=== PATIENT | female | born 1980 | race Caucasian/White ===

== ENCOUNTER 2018-06-10 04:40 | Emergency (ER) | payer OTHER ==
--- NOTE | 2018-06-10 04:58 | PDOC ---
Attending Attestation - Resident Resident Name: Chidi Chau - ED Attending Attestation I have performed the following: I have examined & evaluated the patient, The case was reviewed & discussed with the resident, I agree w/resident's findings & plan - HPI HPI: 06/10/18 05:28 Pt fell backward out of a chair at 10PM. Daughter put mom to bed, and got concerned later in the night when mom was not arousable from her slumber. Mom is A+Ox3 and in no distress. Mom is somnolent/drunk. - Physicial Exam PE: 06/10/18 05:29 Agree with resident exam - Medical Decision Making 06/10/18 05:29 Labs; serum preg; CT scan of head and c spine and Pelvis XR 06/10/18 06:17 Labs normal and pt is not . Alcohol level pending. Imaging studies pending. 06/10/18 06:29 Day attedning will follow CT scan results and disposition the patients.
[2018-06-10 04:59] VITALS: BP 118/85; PULSE 84; TEMP 98.3; BMI 27.8
--- NOTE | 2018-06-10 04:59 | PDOC ---
History of Present Illness - General Chief Complaint: Back Pain Stated Complaint: FALL Time Seen by Provider: 06/10/18 04:58 - History of Present Illness Initial Comments: 06/10/18 05:24 Ms. Nelson is a 37 yo female w/ pmh of DM and HLD who presents for evaluation of fall earlier tonight. Patient was reportedly drinking with friends around 10pm and fell backwards off of a bench. She took some aleve and went to bed. Daughter who is with her became concerned early this morning when she went to check on her as mother was difficult to awaken. Ms. Nelson is currently complaining of neck and low back pain. Past History - Past Medical History Allergies/Adverse Reactions: Allergies Allergy/AdvReac Type Severity Reaction Status Date / Time No Known Allergies Allergy Verified 06/10/18 04:44 COPD: No Diabetes: Yes HTN: Yes Hypercholesterolemia: Yes - Suicide/Smoking/Psychosocial Hx Smoking History: Never smoked Review of Systems - Review of Systems Comments:: 06/10/18 05:29 GENERAL/CONSTITUTIONAL: No fever or chills. No weakness. HEAD, EYES, EARS, NOSE AND THROAT: No change in vision. No ear pain or discharge. No sore throat. CARDIOVASCULAR: No chest pain or shortness of breath RESPIRATORY: No cough, wheezing, or hemoptysis. GASTROINTESTINAL: No nausea, vomiting, diarrhea or constipation. GENITOURINARY: No dysuria, frequency, or change in urination. MUSCULOSKELETAL: +Patient complaining of neck pain. SKIN: No rash NEUROLOGIC: No headache, vertigo, loss of consciousness, or change in strength/ sensation. ENDOCRINE: No increased thirst. No abnormal weight change HEMATOLOGIC/LYMPHATIC: No anemia, easy bleeding, or history of blood clots. ALLERGIC/IMMUNOLOGIC: No hives or skin allergy. *Physical Exam - Vital Signs Last Vital Signs Temp Pulse Resp BP Pulse Ox 98.3 F 84 18 118/85 99 06/10/18 04:43 06/10/18 04:43 06/10/18 04:43 06/10/18 04:43 06/10/18 04:43 - Physical Exam Comments: 06/10/18 05:32 GENERAL: +Patient intoxicated appearing. Awake, alert, and fully oriented, in no acute distress HEAD: No signs of trauma, normocephalic, atraumatic EYES: PERRLA, EOMI, sclera anicteric, conjunctiva clear ENT: Auricles normal inspection, hearing grossly normal, nares patent, oropharynx clear without exudates. Moist mucosa NECK: +TTP in C3-C4 area. LUNGS: No distress, speaks full sentences, clear to auscultation bilaterally HEART: Regular rate and rhythm, normal S1 and S2, no murmurs, rubs or gallops, peripheral pulses normal and equal bilaterally. ABDOMEN: Soft, nontender, normoactive bowel sounds. No guarding, no rebound. No masses EXTREMITIES: Normal inspection, Normal range of motion, no edema. No clubbing or cyanosis. NEUROLOGICAL: Cranial nerves II through XII grossly intact. Normal speech, normal gait, no focal sensorimotor deficits SKIN: Warm, Dry, normal turgor, no rashes or lesions noted. ED Treatment Course - LABORATORY CBC & Chemistry Diagram: 06/10/18 05:24 06/10/18 05:24 Medical Decision Making - Medical Decision Making 06/10/18 05:33 Ms. Nelson is a 37 yo female w/ [facility] as described who presents for evaluation of fall. Patient appears intoxicated - Head and C-spine CT's ordered for further evaluation as well as alcohol level to confirm history. 06/10/18 06:28 Alcohol elevated as below. Labs otherwise grossly wnl as below. Patient pending imaging for further evaluation. Laboratory Results - last 24 hr 06/10/18 06/10/18 06/10/18 05:23 05:24 05:24 WBC 7.8 RBC 4.50 Hgb 11.7 Hct 36.2 MCV 80.4 MCH 26.1 MCHC 32.4 RDW 14.6 Plt Count 367 MPV 7.5 Absolute Neuts (auto) 3.5 Neutrophils % 44.5 Lymphocytes % 44.3 H Monocytes % 9.1 Eosinophils % 1.4 Basophils % 0.7 Nucleated RBC % 0 Sodium 141 Potassium 3.6 Chloride 108 H Carbon Dioxide 24 Anion Gap 8 BUN 9 Creatinine 0.5 L Creat Clearance w eGFR 137.35 Random Glucose 94 Calcium 8.0 L Total Bilirubin 0.4 AST 12 L ALT 15 Alkaline Phosphatase 67 Total Protein 7.2 Albumin 3.4 Serum , Qual Negative Alcohol, Quantitative 06/10/18 05:24 WBC RBC Hgb Hct MCV MCH MCHC RDW Plt Count MPV Absolute Neuts (auto) Neutrophils % Lymphocytes % Monocytes % Eosinophils % Basophils % Nucleated RBC % Sodium Potassium Chloride Carbon Dioxide Anion Gap BUN Creatinine Creat Clearance w eGFR Random Glucose Calcium Total Bilirubin AST ALT Alkaline Phosphatase Total Protein Albumin Serum , Qual Alcohol, Quantitative 164.5 H *DC/Admit/Observation/Transfer Diagnosis at time of Disposition: Fall Qualifiers: Encounter type: initial encounter Qualified Code(s): W19.XXXA - Unspecified fall, initial encounter - Referrals Referrals: Isela Mckinley MD [Non Staff, Medical] - - Patient Instructions - Post Discharge Activity
[2018-06-10] MEDS ORDERED: ACETAMINOPHEN 500 MG TABLET (FP) PO ONE (05:11)
[2018-06-10] MEDS ORDERED: ACETAMINOPHEN 325 MG TABLET (FP) ONE (05:27)
[2018-06-10 05:39] LABS: BASO % 0.7 % (0-2.0); EOS % 1.4 % (0-4.5); HEMATOCRIT 36.2 % (32.4-45.2); HEMOGLOBIN 11.7 GM/dL (10.7-15.3); LYMPH % 44.3 % (8-40); MCH 26.1 pg (25.7-33.7); MCHC 32.4 g/dl (32.0-36.0); MEAN CELL VOLUME 80.4 fl (80-96); MEAN PLT VOLUME 7.5 fl (7.5-11.1); MONO % 9.1 % (3.8-10.2); NEUT % 44.5 % (42.8-82.8); PLATELET COUNT 367 K/MM3 (134-434); RDW 14.6 % (11.6-15.6); WHITE BLOOD COUNT 7.8 K/mm3 (4.0-10.0)
[2018-06-10 06:03] LABS: ALBUMIN 3.4 g/dl (3.4-5.0); ALK PHOS 67 U/L (45-117); ANION GAP 8 MMOL/L (8-16); BILIRUBIN,TOTAL 0.4 mg/dL (0.2-1); BLOOD UREA NITROGEN 9 mg/dL (7-18); CHLORIDE 108 mmol/L (98-107); CO2 24 mmol/L (21-32); CREATININE 0.5 mg/dL (0.55-1.3); GLUCOSE,RANDOM 94 mg/dL (74-106); POTASSIUM 3.6 mmol/L (3.5-5.1); SGOT/AST 12 U/L (15-37); SGPT/ALT 15 U/L (13-61); SODIUM 141 mmol/L (136-145); TOT PROT 7.2 g/dl (6.4-8.2)
--- NOTE | 2018-06-10 07:23 | PDOC ---
*Physical Exam - Vital Signs Last Vital Signs Temp Pulse Resp BP Pulse Ox 98.3 F 84 18 118/85 99 06/10/18 04:43 06/10/18 04:43 06/10/18 04:43 06/10/18 04:43 06/10/18 04:43 - Physical Exam Comments: 06/10/18 08:07 gen: sleeping, but arousable, smell of etoh on her breath heent: EOMI, MMM neck: no midline ttp, c- collar removed, FROM without pain, no stepoffs or deformities heart: +s1s2 reg lungs: cta b/l abd: soft, nt/nd +bs ext: pelvis stable, abnl to range the LE, no leg ttp back: midline lumbar spine ttp around L3-4, no step-offs or deformities neuro: no focal neuro deficits skin: no ecchymosis ED Treatment Course - LABORATORY CBC & Chemistry Diagram: 06/10/18 05:24 06/10/18 05:24 - ADDITIONAL ORDERS Additional order review: Laboratory Results 06/10/18 06/10/18 06/10/18 05:24 05:24 05:23 Sodium 141 Potassium 3.6 Chloride 108 H Carbon Dioxide 24 Anion Gap 8 BUN 9 Creatinine 0.5 L Creat Clearance w eGFR 137.35 Random Glucose 94 Calcium 8.0 L Total Bilirubin 0.4 AST 12 L ALT 15 Alkaline Phosphatase 67 Total Protein 7.2 Albumin 3.4 Serum , Qual Negative Alcohol, Quantitative 164.5 H 06/10/18 05:24 RBC 4.50 MCV 80.4 MCHC 32.4 RDW 14.6 MPV 7.5 Neutrophils % 44.5 Lymphocytes % 44.3 H Monocytes % 9.1 Eosinophils % 1.4 Basophils % 0.7 - Medications Given in the ED: ED Medications Discontinued Medications Generic Name Dose Route Start Last Admin Trade Name Freq PRN Reason Stop Dose Admin Acetaminophen 975 mg 06/10/18 05:11 06/10/18 05:30 Tylenol - PO 06/10/18 05:12 975 mg ONCE ONE Administration Medical Decision Making - Medical Decision Making 06/10/18 08:08 a/p: 37yo female signed out from the night team pending re-eval -pt had ct c spine and head ct- no acute findings or acute fx on either c-collar removed, c spine cleared -pt currently metabolizing etoh -pelvis is stable, but has ttp over the pelvis -midline low back ttp, will add lumbar spine xray -will continue to monitor and reassess -no red flags on back exam or leg exam -neuro intact 06/10/18 09:07 no acute fx on imaging pt ambulated with a steady gait feels better speaking in full sentences stable for dc to home *DC/Admit/Observation/Transfer Diagnosis at time of Disposition: Alcohol use, Back pain, Pelvic pain, Closed head injury Fall Qualifiers: Encounter type: initial encounter Qualified Code(s): W19.XXXA - Unspecified fall, initial encounter - Discharge Dispostion Disposition: HOME Condition at time of disposition: Stable Decision to Admit order: No - Referrals Referrals: Isela Mckinley MD [Non Staff, Medical] - - Patient Instructions Printed Discharge Instructions: DI for Closed Head Injury, Alcohol Use Disorder , DI for Low Back Pain - Post Discharge Activity
--- NOTE | 2018-06-10 07:59 | PDOC ---
*Physical Exam - Vital Signs Last Vital Signs Temp Pulse Resp BP Pulse Ox 98.3 F 84 18 118/85 99 06/10/18 04:43 06/10/18 04:43 06/10/18 04:43 06/10/18 04:43 06/10/18 04:43 - Physical Exam Comments: 06/10/18 09:09 continuation of care as per previous residents note ED Treatment Course - LABORATORY CBC & Chemistry Diagram: 06/10/18 05:24 06/10/18 05:24 - ADDITIONAL ORDERS Additional order review: Laboratory Results 06/10/18 06/10/18 06/10/18 05:24 05:24 05:23 Sodium 141 Potassium 3.6 Chloride 108 H Carbon Dioxide 24 Anion Gap 8 BUN 9 Creatinine 0.5 L Creat Clearance w eGFR 137.35 Random Glucose 94 Calcium 8.0 L Total Bilirubin 0.4 AST 12 L ALT 15 Alkaline Phosphatase 67 Total Protein 7.2 Albumin 3.4 Serum , Qual Negative Alcohol, Quantitative 164.5 H 06/10/18 05:24 RBC 4.50 MCV 80.4 MCHC 32.4 RDW 14.6 MPV 7.5 Neutrophils % 44.5 Lymphocytes % 44.3 H Monocytes % 9.1 Eosinophils % 1.4 Basophils % 0.7 - Medications Given in the ED: ED Medications Discontinued Medications Generic Name Dose Route Start Last Admin Trade Name Freq PRN Reason Stop Dose Admin Acetaminophen 975 mg 06/10/18 05:11 06/10/18 05:30 Tylenol - PO 06/10/18 05:12 975 mg ONCE ONE Administration Medical Decision Making - Medical Decision Making 06/10/18 07:[address]ervical CT show no acute abnormalities, f.u pelvis xray 06/10/18 09:09 pelvis xray and lumbar xray with out fracture able to walk, awake, alert, and oriented motrin 600 mg for pain 06/10/18 16:32 patient DC home able to ambulate and articulate *DC/Admit/Observation/Transfer Diagnosis at time of Disposition: Alcohol use, Back pain, Pelvic pain, Closed head injury Fall Qualifiers: Encounter type: initial encounter Qualified Code(s): W19.XXXA - Unspecified fall, initial encounter - Discharge Dispostion Disposition: HOME Condition at time of disposition: Improved - Referrals Referrals: Isela Mckinley MD [Non Staff, Medical] - - Patient Instructions Printed Discharge Instructions: Alcohol Use Disorder, DI for Low Back Pain, How to Prevent Falls, DI for Closed Head Injury Additional Instructions: You came to the emergency department because you had fallen. We did imaging of your head, neck, pelvis, and lower back spine. We did not find any fractures on imaging. For your continued pain please take tylenol or motrin, do not exceed the maximum dose as stated on the bottle. You may place cold packs to the affected area to also help with the pain. Please be aware that you should limit the amount of alcohol you drink. It can damage your liver and lead to more falls. Return to the emergency department if you have worsening of pain, trouble urinating or having bowel movements, dizziness, nausea, chest pain, or shortness of breath. - Post Discharge Activity
[2018-06-10] MEDS ORDERED: IBUPROFEN 600 MG TABLET (FP) PO ONE ×2 (09:08→09:18)
== END 2018-06-10 09:26 | disposition home or self-care (01) ==
LOC: JER 04:40
DX: M54.2 Cervicalgia (principal); W08.XXXA Fall from other furniture, initial encounter; Y93.89 Activity, other specified; Y92.89 Other specified places as the place of occurrence of the external cause; Y99.8 Other external cause status; F10.120 Alcohol abuse with intoxication, uncomplicated; Y90.6 Blood alcohol level of 120-199 mg/100 ml; I10 Essential (primary) hypertension; E11.9 Type 2 diabetes mellitus without complications
CPT/HCPCS: 36415; 70450-TC; 72100-TC-FY; 72125-TC; 72170-TC-FY; 80053; 80307; 84703; 85025; 99281-25